=== PATIENT | male | born 1995 | race African-American/Black ===

== ENCOUNTER 2024-09-08 22:24 | Emergency (ER) | payer OTHER, SELFPAY ==
[2024-09-08 22:23] VITALS: BP 120/72; PULSE 84; RESP 16; TEMP 36.4; O2SAT 100
--- NOTE | 2024-09-08 22:40 | ED.ALCOHOL ---
HPI - Alcohol General Chief Complaint: Alcohol Stated Complaint: Altered LOC, +ETOH Time Seen by Provider: 09/08/24 22:36 History of Present Illness HPI narrative: 29-year-old male presenting via EMS for concerns of alcohol intoxication. Patient states he had only beers to drink but is clinically intoxicated and having emesis. Patient otherwise appears in his normal state of health and has no chronic medical conditions. He is answering questions. Not any acute distress but is retching and vomiting several times over the counter. No signs of trauma, no other medications. No other drug use reported. Related Data Allergies Allergy/AdvReac Type Severity Reaction Status Date / Time Penicillins Allergy Hives Verified 09/08/24 22:52 Review of Systems Review of Systems: As reviewed above Exam Narrative: GENERAL: Retching and vomiting but otherwise normal appearing male, does appear intoxicated. HEAD: [Normocephalic, atraumatic.] EYES: [PERRLA and EOMI.] ENT: Nares clear, no rhinorrhea or epistaxis. Mucous membranes moist. NECK: Supple. CHEST: [Clear to auscultation. No respiratory distress.] HEART: [Regular rate and rhythm]. No murmur heard. [Normal peripheral pulses.] ABDOMEN: [Soft, nondistended], [nontender], [No rigidity or guarding] EXTREMITIES: Normal range of motion. [No edema.] SKIN: Warm, dry, no rash. NEURO: [No focal deficits]. Alert and oriented [x3.] PSYCH: [Normal mood and affect.] Course Vital Signs Vital signs: Vital Signs Temperature 36.4 C L 09/08/24 22:23 Pulse Rate 84 09/08/24 22:23 Respiratory Rate 16 09/08/24 22:23 Blood Pressure 120/72 09/08/24 22:23 Pulse Oximetry 100 09/08/24 22:23 Oxygen Delivery Room Air 09/08/24 22:23 Temperature 36.4 C L 09/08/24 22:23 Pulse Rate 84 09/08/24 22:23 Respiratory Rate 16 09/08/24 22:23 Blood Pressure 120/72 09/08/24 22:23 Pulse Oximetry 100 09/08/24 22:23 Oxygen Delivery Room Air 09/08/24 22:23 MDM - Alcohol MDM Narrative Medical decision making narrative: 29-year-old male presenting from EMS for concerns of alcohol intoxication with vomiting. Patient otherwise appears in his normal state of health and has normal reassuring vital signs. His retching and vomited several times throughout the encounter. No abdominal pain, is awake and answering questions. Does appear intoxicated. Laboratory studies were obtained including a CBC CMP and alcohol level magnesium. He was given thiamine folic acid magnesium and LR bolus as well as Reglan for nausea control. He will be observed for sobriety prior to discharge. Mildly elevated alcohol 232, no significant electrolyte derangements, mild leukocytosis reactive to his vomiting but no anemia. Patient was observed for several hours here in the emergency department. He had woken up and was no longer feeling nauseous or any further emesis while here in the ED. he is expressing desire for discharge and is clinically sober and does not have any evidence of intoxication presently. His girlfriend is able to come pick him up and I was agreeable to this plan for discharge home at this time. Patient's questions were answered he was stable for discharge at this time. Medical Records Attestation: I reviewed the patient's medical records. Lab Data Attestation: I reviewed the patient's lab results. 09/08/24 22:50 09/08/24 22:50 Labs: Lab Results 09/08/24 Range/Units 22:50 WBC 11.5 H (4.5-10.0) K/mm3 RBC 4.49 L (4.6-6.20) M/mm3 Hgb 14.8 (14.0-18.0) g/dL Hct 43.0 (42.0-52.0) % MCV 95.8 (80-100) fl MCH 33.0 (26-34) pg MCHC 34.4 (32-36) g/dl RDW 12.9 (11.5-14.5) % Plt Count 330 (150-375) k/mm3 MPV 9.2 (7.4-10.4) fl Immature Gran % (Auto) 0.4 (0-0.5) % Neut % (Auto) 51.2 (45.5-73.1) % Lymph % (Auto) 40.6 (18.3-44.2) % Guthrie % (Auto) 5.0 (2.6-8.5) % Eos % (Auto) 2.1 (0-4.4) % Baso % (Auto) 0.7
[2024-09-08 22:57] LABS: Basophils Absolute Auto 0.1 K/mm3 (0.0-0.1); Basophils Percent Auto 0.7 % (0.2-1.2); Eosinophils Absolute Auto 0.2 K/mm3 (0-0.3); Eosinophils Percent Auto 2.1 % (0-4.4); Hemoglobin 14.8 g/dL (14.0-18.0); Immature Granulocyte Absolute 0.05 K/mm3 (0.00-0.031); Immature Granulocyte Percent A 0.4 % (0-0.5); Lymphocytes Absolute Auto 4.66 K/mm3 (0.9-3.2); Lymphocytes Percent Auto 40.6 % (18.3-44.2); Mean Corpuscular HGB Conc 34.4 g/dl (32-36); Mean Corpuscular Volume 95.8 fl (80-100); Mean Platelet Volume 9.2 fl (7.4-10.4); Monocytes Absolute Auto 0.6 K/mm3 (0.1-0.6); Neutrophils Absolute Auto 5.9 K/mm3 (1.3-6.7); Neutrophils Percent Auto 51.2 % (45.5-73.1); Platelet Count Result 330 k/mm3 (150-375); Red Blood Count 4.49 M/mm3 (4.6-6.20); Red Cell Distribution Width 12.9 % (11.5-14.5); White Blood Count 11.5 K/mm3 (4.5-10.0)
[2024-09-08 23:08] LABS: Alanine Aminotransferase 11 U/L (6-50); Albumin Level 4.2 g/dL (3.5-5.1); Alkaline Phosphatase 81 U/L (38-126); Anion Gap 12 mmol/L (4-12); Aspartate Amino Transferase 23 U/L (17-59); Bilirubin,Total 0.3 mg/dL (0.2-1.3); Blood Urea Nitrogen 10 mg/dL (9-20); Calcium 8.7 mg/dL (8.4-10.2); Carbon Dioxide 17 mmol/L (22-30); Chloride 110 mmol/L (98-107); Estimated CRCL calculation 106 ml/min; Estimated Glomerular Filt Rate > 60; Glucose 110 mg/dL (65-110); Magnesium 2.3 mg/dL (1.6-2.3); Potassium 3.5 mmol/L (3.4-5.0); Sodium 139 mmol/L (137-145)
--- NOTE | 2024-09-08 23:08 | PC.NURSE ---
pt had a large emesis all over the floor
[2024-09-08 23:10] LABS: Ethanol 232 mg/dL (<10)
[2024-09-08] MEDS: THIAMINE HCL INJ 100 MG, FOLIC ACID INJ 1 MG, MAGNESIUM SULFATE INJ 1 GM in LACTATED RI... 1000 MG IV CONT (23:20)
[2024-09-08] MEDS: METOCLOPRAMIDE HCL INJ 10 MG/2 ML VIAL IV PUSH (23:21)
[2024-09-09 02:13] VITALS: BP 127/84; PULSE 80; RESP 17; O2SAT 100
== END 2024-09-09 02:47 | disposition home or self-care (01) ==
PROVIDERS: Emergency Provider Student in an Organized Health Care Education/Training Program
DX: F10.129 Alcohol abuse with intoxication, unspecified (principal)
CPT/HCPCS: 36415; 80053; 82077; 83735; 85025; 96365; 96375; 99284; J2765; J3411; J3475; J7120